=== PATIENT | male | born 1970 ===

== ENCOUNTER 2023-08-19 12:34 | Outpatient (CLI) | payer BC, SELFPAY ==
--- NOTE | ~2023-08-19 | CT_ITS ---
CT of the Abdomen and Pelvis: Indication: Right upper quadrant mass Technique: 2.5 mm axial scans were obtained through the abdomen and pelvis following intravenous adm inistration of 100 cc of Omnipaque 350. Dose reduction technique was used on this scan by utilizing a utomated exposure control and iterative reconstruction technique. The dose-length product (DLP) was 1 049.69 mGy-cm. Findings: Scans through the lung bases are unremarkable. Small hepatic cysts are present. The spleen, pancreas, gallbladder, adrenals and kidneys are within n ormal limits. No evidence of aortic aneurysm. No lymphadenopathy. No bowel obstruction or bowel wall thickening. There is no evidence to suggest acute appendicitis. Images through the pelvis were performed. Urinary bladder unremarkable. No pelvic mass seen. Fat-cont aining left inguinal hernia present. No ascites. Impression: Fat-containing left inguinal hernia. No right upper quadrant mass identified. Reviewed, dictated and finalized at [facility]. Impression: Fat-containing left inguinal hernia. No right upper quadrant mass identified.
== END 2023-08-19 12:35 ==
DX: K40.90 Unilateral inguinal hernia, without obstruction or gangrene, not specified as recurrent (principal)
CPT/HCPCS: 74177; Q9967